=== PATIENT | male | born 1970 | race Caucasian/White ===

== ENCOUNTER 2018-12-04 06:00 | Day surgery (SDC) | payer OTHER ==
[~2018-12-04 06:00] MED LIST: AVAPRO75 MG PO; GLIMEPIRIDE2 MG PO; JANUMET XR 50-1 EAC1 PO; LANTUS SOL100 UNIT/1 SUBCUTANEO; ZIAC 10/6.25 MG1 TAB PO
== END 2018-12-04 12:05 | disposition home or self-care (01) ==
LOC: CIR.AMB 06:00
DX: A63.0 Anogenital (venereal) warts (principal)